=== PATIENT | female | born 1980 | race American Indian/Alaskan Native ===

== ENCOUNTER 2016-09-22 12:03 | Outpatient (CLI) | payer BC ==
--- NOTE | 2016-09-24 10:40 | Mammography Report ---
BILATERAL DIGITAL DIAGNOSTIC MAMMOGRAM WITH CAD AND TARGETED RIGHT BREAST ULTRASOUND. HISTORY: Right focal mastodynia. Comparison is made to the previous study on September 15, 2013. FINDINGS: The breast parenchyma is heterogeneously dense, and the overall pattern is stable. No masses or architectural distortion is seen. There are no suspicious calcifications. An opaque marker was placed on the skin surface overlying the site of breast pain. No focal abnormalities are seen. Targeted ultrasound of the area of interest in the right breast demonstrates no evidence of a cystic or solid mass. IMPRESSION: No suspicious imaging findings. BI-RADS CATEGORY: 1 = Negative ACR BI-RADS MAMMOGRAPHIC CODES: 0 = Needs additional imaging evaluation; 1 = Negative; 2 = Benign; 3 = Probably benign; 4 = Suspicious; 5 = Malignant; 6 = Known biopsy-proven malignancy COMMENT: 1. Dense breast tissue, i.e., adenosis, fibrocystic changes, etc., may obscure an underlying neoplasm. 2. Approximately 10% of cancers are not detected with mammography. 3. A negative mammography report should not delay biopsy if a clinically suspicious mass is present.. RECOMMENDATION: Annual screening. COMMENT: Patient follow-up letters are generated by [employer].
== END 2016-09-22 12:04 | disposition home or self-care (01) ==
LOC: SPVWC 12:03
PROVIDERS: ATTEND Family Medicine
DX: R92.8 Other abnormal and inconclusive findings on diagnostic imaging of breast (principal); N64.4 Mastodynia
CPT/HCPCS: 76642; G0204; 77066